=== PATIENT | female | born 1970 | race Caucasian/White ===

== ENCOUNTER 2024-05-21 12:31 | Inpatient (IN) | payer BC, SELFPAY ==
[2024-05-21] VITALS (20 sets, daily range): BP systolic 96–156; BP diastolic 48–94; BMI 33.4; BMI 33.8
[2024-05-21 00:48] LABS: % Basophils 0.2 % (0-2); % Eosinophils 1.3 % (0-6); % Immature Granulocytes 1.6 % (0-0.5); % Lymphocytes 14.8 % (20.5-51.1); % Monocytes 11.4 % (1.7-9.3); % Neutrophils 70.7 % (42.2-75.2); Absolute Eosinophils 0.2 10^3/uL (0-0.7); Absolute Immature Granulocytes 0.2 10^3/uL (0-0.05); Absolute Monocytes 1.6 10^3/uL (0.1-0.6); Absolute Neutrophils 9.6 10^3/uL (1.4-6.5); Hematocrit 40.3 % (37.0-47.0); Hemoglobin 13.8 g/dL (12.0-16.0); Mean Corp Hgb Conc. 34.2 g/dL (33.0-37.0); Mean Corpuscular Hgb 27.6 pg (27.0-31.0); Mean Corpuscular Volume 80.6 fL (81.0-99.0); Mean Platelet Volume 9.2 fL (7.4-10.4); Nucleated Red Blood Cells % 0 %; Platelet Count 330 10^3/uL (130-400); Red Cell Dist. Width 13.2 % (11.5-14.5); White Blood Cell Count 13.6 10^3/uL (4.8-10.8)
[2024-05-21 01:13] LABS: ALT (SGPT) 17 U/L (0-35); AST (SGOT) 25 U/L (14-36); Albumin 4.3 g/dl (3.5-5.0); Alkaline Phosphatase 92 U/L (38-126); Blood Urea Nitrogen 17 mg/dl (7-17); Carbon Dioxide 22 mmol/L (22-30); Chloride 102 mmol/L (98-107); Glucose 179 mg/dl (70-99); Potassium 4.1 mmol/L (3.5-5.1); Sodium 136 mmol/L (135-145); Total Bilirubin 0.6 mg/dl (0.2-1.3); Total Protein 6.6 g/dl (6.3-8.2); eGFR > 60.00
[2024-05-21] MEDS: ZOFRAN 4 MG IV ×2 (02:30→08:47)
[2024-05-21] MEDS: DILAUDID 1 MG IV ×2 (02:31→04:42)
[2024-05-21] MEDS: NSS 1000 IV ×4 (02:31→22:13)
--- NOTE | 2024-05-21 02:43 | ED.GENMED ---
History of Present Illness
General
Chief Complaint: Abdominal Pain
Source: patient and spouse
Exam Limitations: none
Time Seen by Provider: 05/21/24 01:59
Nursing documentation reviewed up to this point in time: agreed with
History of Present Illness
History of Present Illness:
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
She presents with initially generalized mid abdominal pain and feeling somewhat bloated that began shortly after dinner around 6 PM. Pain has been moderate in nature, progressively worsening over the past several hours and now seems to be more
located in her right lower quadrant. Pain is now severe in nature, much worse with movement, improves minimally when she is lying still. She admits to feeling moderately nauseous and vomited once shortly after arrival to the ED. She passed 1
small loose nonbloody stool shortly after arrival to the ED.
She denies fever nor chills. No dysuria and urgency and or hematuria. She denies back pain or flank pain.
She is menopausal.
No history of similar episodes of pain.
Her daily medications include: Fluoxetine, metoprolol, flecainide, rosuvastatin, BuSpar, vitamin D, Zyrtec. She takes no anticoagulants.
Past History
Past History
ED Past Medical History: Arrthythmia (Frequent PVCs-maintained on flecainide), HTN, Hypercholesterolemia and Psychiatric
ED Past Surgical History: (X 2)
Social History
Tobacco: Non-smoker
Alcohol: Occasional
Drug: None
Personal:
Living: with family
Family History
Family History: Other (Noncontributory)
Phy Exam
Physical Exam
Physical Exam:
GENERAL: 54-year-old woman appears her stated age, awake and alert, appears in moderate distress related to pain. Cooperative. is accompanying.
EYE: anicteric
NECK: Supple, nontender, no meningismus, no significant adenopathy.
ENT: oral mucosa is moist. No rhinorrhea.
CARDIAC: Regular rate and rhythm. no murmur.
LUNGS: Clear breath sounds bilaterally, no acute respiratory distress, no wheezes/rales/rhonchi
ABDOMEN: Soft, nondistended, exquisite tenderness right lower quadrant with local guarding, mild rebound. No rigidity. no cvat. normoactive BS.
NEUROLOGICAL: Alert and oriented x3, no focal neuro deficits.
SKIN: Warm and dry, normal color, skin intact. No rash.
MUSCULOSKELETAL: No C/C/E. peripheral pulses are full and equal b/l. No palpable tenderness.
PSYCH: Normal and appropriate interaction.
Course
Orders/Labs/Results
Orders:
Orders
05/21/24 00:35
CMP [Comprehensive Metabolic Panel] Urgent
Complete Blood Count/With Diff Urgent
05/21/24 02:05
0.9% Sodium Chloride 1000 ml [Nss] 1,000 ml IV BOLUS
HYDROmorphone [Dilaudid] 1 mg IV NOW STA
Ondansetron Injectable [Zofran] 4 mg IV NOW STA
05/21/24 02:06
CT Abd/pelvis W Iv Cont Urgent
Comment:
Reason For Exam: SEVERE RLQ pain began this julius
05/21/24 03:58
CefoTEtan [Cefotan] 2,000 mg IV NOW STA
05/21/24 04:01
Electrocardiogram (*1) Urgent
Reason for Study: PreOp
EKG- Treatment ONCE
05/21/24 04:20
Admit/Transfer Patient As Directed
Co-Sign Provider:
Level of Care: Observation services
Assign to:: Telemetry
Physician / Group: General Surgery
Diagnosis: Acute appendicitis
Reason for Telemetry: Arrhythmia
Date to Stop Telemetry: 05/24/24
Time to Stop Telemetry: 11:00
05/21/24 04:21
PRN Pain Medication Management As Directed
May give lesser potent ordered pain med per pt: Yes
preference::
Protocol:: Medication orders for pain may be administered in a
manner that supports deferring to patient preference
when the pt is:
- Requesting an ordered lesser potent pain medication.
Least to most potent pain medications are defined
as: acetaminophen < NSAID < tramadol < opioids
(morphine, oxycodone, hydromorphone).
- Requesting a lesser dose of the same medication IF
ORDERED.
- Requesting a less intrusive route of administration
if both routes are prescribed by the provider (PO <
IV).
05/21/24 04:23
Code Status As Directed
Resuscitation Status: Full Code
05/21/24 04:38
HYDROmorphone [Dilaudid] 1 mg IV Q2HPRN PRN
05/24/24 11:00
DC Protocol for Telemetry ONCE
Abnormal Lab Results
05/21/24
00:35
WBC 13.6 H 10^3/uL
(4.8-10.8)
MCV 80.6 L fL
(81.0-99.0)
Abs Immat Gran (auto) 0.2 H 10^3/uL
(0-0.05)
Absolute Neuts (auto) 9.6 H 10^3/uL
(1.4-6.5)
Absolute Monos (auto) 1.6 H 10^3/uL
(0.1-0.6)
Immature Gran % 1.6 H %
(0-0.5)
Lymphocytes % 14.8 L %
(20.5-51.1)
Monocytes % 11.4 H %
(1.7-9.3)
Glucose 179 H mg/dl
(70-99)
05/21/24 00:35
05/21/24 00:35
Vital Signs
Initial and Last Documented VS:
Initial Vital Signs
Temp Pulse Resp BP Pulse Ox
97.7 F 67 20 118/68 98
05/21/24 00:25 05/21/24 00:25 05/21/24 00:25 05/21/24 00:25 05/21/24 00:25
Last Documented Vital Signs
Temp Pulse Resp BP Pulse Ox
97.7 F 67 20 130/84 93
05/21/24 00:25 05/21/24 00:25 05/21/24 00:25 05/21/24 06:00 05/21/24 04:45
MDM/Problems Addressed
Differential Diagnosis Includes:
Concern for acute appendicitis, diverticulitis, colitis, small bowel obstruction, ovarian cyst, ovarian torsion.
Labs are remarkable for mildly elevated white blood cell count of 13.6. Chemistries are unremarkable save for elevated random glucose 179.
Will medicate for pain and nausea, initiate IV fluids and plan for CT abdomen pelvis with IV contrast.
Chronic conditions affecting care: HTN and Arrhythmia
*Radiology
Radiology exam reviewed: radiology read reviewed (CAT scan shows acute appendicitis)
*Pulse Oximetry
Patient hypoxic: no
*EKG
Interpreted by ED Provider?: Yes
Interpretation: normal
Comparison EKG: no comparison EKG present
Rate: normal
Rhythm: sinus
[place]: normal axis
Interval: normal interval
QRS Pattern: normal QRS
Ischemia: no ischemia
*Critical Care Note
Total Time (30-74mins, 75-104mins- exclusive of procedures): Not Applicable
Update Note
Update Note:
CT shows acute appendicitis. No evidence of perforation or abscess.
Patient is much more comfortable after IV Dilaudid and Zofran but does continue with moderate tenderness right lower quadrant.
Allergy to penicillin is a rash. She states she has taken cephalosporins in the past without adverse events.
General surgery consulted. Case discussed with Dr. Navarrete. Will admit to his service.
Will initiate IV Cefotan, continue IV fluids, as needed pain medication. N.p.o. status.
ED Attending Note
-
Portions of this chart may have been created with voice recognition software.� Occasional wrong word or��sound alike� substitutions may have occurred due to the inherent limitations of voice recognition software.
Discharge Plan
Departure
Patient Disposition: Admit
Date of Disposition: 05/21/24
Time of Disposition: 03:58
Admit to: Med/Surg
Admit to doctor: Landon
Presentation/result/management discussed w/ accepting MD/DO: gen surgery
Condition: Serious
Discharge Problem:
Acute appendicitis
Interventions
Interventions:
*Risk Screen - Suicide Last Done: 05/21/24 00:25
*General Assessment Last Done: 05/21/24 00:25
*Neglect/Abuse Screening Last Done: 05/21/24 01:52
ED- Fall Risk Assessment Last Done: 05/21/24 02:17
*ED COVID-19 Vaccine History Last Done: 05/21/24 01:52
*Nursing Disposition Last Done: 05/21/24 06:09
KZ-Dmdsux-Gcrypoqmnf Assessment Last Done: 05/21/24 02:17
[2024-05-21] MEDS: CEFOTAN 2000 MG IV ×3 (04:05→22:15)
--- NOTE | 2024-05-21 04:36 | HPS.HSE ---
Addendum entered and electronically signed by Cedric Navarrete MD 05/21/24 08:00:
Patient seen and examined independently of admitting nurse practitioner. Agree with documented history and physical consistent my current examination and evaluation.
HPI: 54-year-old female who reports recent history of abdominal bloating and distention intermittently but then developed the acute onset of abdominal pain yesterday evening which rapidly increased in severity and localized to the right lower
quadrant. Worse with movement or to the touch. Nauseous and vomited once. Regular bowel movement yesterday evening. No similar episodes like this in the past.
PMH: Frequent PVCs, hypertension, hyperlipidemia
PSH: x 2
AFVSS
NAD AAOx3
ABD: Soft, nondistended, tenderness palpation in right lower quadrant with voluntary guarding and rebound
CT abdomen/pelvis: Appendix visualized in the right lower quadrant with multiple fecaliths. Appendiceal dilation and associated localized inflammatory changes. Trace free fluid. No organizing abscess. No extraluminal air. No phlegmon. Terminal
ileum and adjacent small bowel with mild associated reactive changes. Cecum unremarkable.
Assessment/plan: 54-year-old female presenting with acute appendicitis
Reviewed with patient treatment options both operative and nonoperative management. We discussed the risks and benefits of either approach. In the setting of multiple obstructing fecaliths I recommended strong consideration of appendectomy which
patient is in agreement with. Laparoscopic appendectomy was reviewed in detail the patient including the operative technique, potential operative findings and their management, alternative treatment options, benefits and risks such as but not
limited to bleeding, infectious and related complications, iatrogenic injury to surrounding viscera. We discussed the typical postoperative recovery pending operative findings.
Any of the patient's concerns or questions were fully addressed and informed consent was obtained
Patient is on the OR schedule today for laparoscopic appendectomy
Original Note:
Family Physician
-
Family Physician: Artem Berrios III, MD
Chief Complaint
-
Abdominal pain
History of Present Illness
Patient is a 54 year old female with a past medication history significant for hypertension, hyperlipidemia, history of frequent PVCs (on Flecainide), and history of anxiety/depression who presents with abdominal pain. She states pain was initially
generalized throughout her mid abdomen and was feeling bloated around dinner on Saturday around 6 pm. Pain began as moderate in nature, progressively worsening over the past several hours and now seems to be more located in her right lower
quadrant. Pain is now severe in nature, much worse with movement, improves minimally when she is lying still. She admits to feeling moderately nauseous and vomited once shortly after arrival to the ED. She passed 1 small loose nonbloody stool
shortly after arrival to the ED. She denies fever nor chills. No dysuria and urgency and or hematuria. She denies back pain or flank pain.
In the emergency department, labs were remarkable for elevated WBC at 13.6. Vital signs stable, afebrile. CT Abd/Pelvis with contrast completed, preliminary read findings compatible with acute appendicitis. 8 mm and 9 mm calcified appendicoliths in
the proximal appendix. (3 additional appendicoliths in the appendix). The appendix is dilated, measuring up to 13 mm in diameter, and fluid distended. Mild periappendiceal inflammatory fat stranding and trace free fluid. No evidence for perforation.
No abscess collection. No other acute intra-abdominal pathology.
Patient received 1L NNS, nausea and pain medication and started on Cefotan 2,000 mg IV (Allergy to penicillin is a rash. She states she has taken cephalosporins in the past without adverse events.) General Surgery consulted by Dr. Miguel. Case
discussed with Dr. Navarrete who will admit patient to his service.
Medical History
Past Medical History
Past Medical History: Reports Arrhythmia (Hx of frequent PVC's), HTN and Other (Hyperlipidemia)
Past Surgical History: Reports (X 2)
Social History
Tobacco: Non-smoker
Alcohol: Occasional
Drug: None
Personal:
Living: With Family
Employment: Employed
Family History
Family History: Not pertinent
Allergies / Home Medications
Allergies reflects when Allergies were last updated in [facility].
Home Medications with original date entered in [facility]
Allergy/Medication List:
Patient Allergies
Allergy/AdvReac Type Severity Reaction Status Date / Time
Penicillins Allergy Rash Verified 05/21/24 00:25
If medication reconciliation has not been performed, why?: Medication List N/A
Review of Systems
-
History Source: Patient
Constitutional: Reports Chills
EENT: Reports No Symptoms
Respiratory: Reports No Symptoms
Cardiac: Reports No Symptoms
Abdomen/GI: Reports Abdominal Pain (started as generalized, now right lower quadrant), Nausea, Vomiting (vomited x 1 in ED waiting room) and Diarrhea (loose stools)
: Reports No Symptoms
Musculoskeletal: Reports No Symptoms
Skin: Reports No Symptoms
Neurological: Reports No Symptoms
Psych: Reports Calm
Physical Exam
Vital Signs
Vital Signs
Temp Pulse Resp BP Pulse Ox
97.7 F 67 20 135/91 97
05/21/24 00:25 05/21/24 00:25 05/21/24 00:25 05/21/24 04:00 05/21/24 04:00
Physical Exam
General: Well Nourished, Appears in Distress and Pain (right lower quadrant)
HEENT: Moist mucous membranes and PERRLA
Respiratory: Clear
Cardiac: S1/S2 and Regular Rhythm; No Murmur or Peripheral Edema
GI: Non Distended, Normal Bowel Sounds and Tender (right lower quadrant, TTP)
Musculoskeletal: No Edema
Skin: Warm and Dry; No Rash
Neuro: AO x 3
Psych: Calm and Intact Judgment/Insight
Laboratory Results
-
05/21/24 00:35
05/21/24 00:35
Laboratory Results
Total Bilirubin 0.6 mg/dl (0.2-1.3) 05/21/24 00:35
AST 25 U/L (14-36) 05/21/24 00:35
ALT 17 U/L (0-35) 05/21/24 00:35
Alkaline Phosphatase 92 U/L (38-126) 05/21/24 00:35
Data Reviewed
-
CT Scan: Report Reviewed by me
Lab Data: Labs Reviewed by me
Impression/Plan
-
IMPRESSION:
Patient is a 54 year old female with a past medication history significant for hypertension, hyperlipidemia, history of frequent PVCs (on Flecainide), and history of anxiety/depression who presents with abdominal pain
PLAN:
Acute appendicitis
-Admit to general surgery, Dr. Navarrete accepted patient
-NPO, IV fluids
-Pain medication, anti emetics, antibiotics
Hypertension/Hyperlipidemia
Continue home medications
Anxiety/Depression
Continue home medications
Home medications not yet verified. Please order as appropriate.
DVT prophylaxis: Lovenox
Code Status: Full code
--- NOTE | 2024-05-21 07:22 | TRANSFER ---
Received pt from ED at 0615 w dx of acute appendicitis. Pt denied pain. VS WNL. Discussed w patient plan of care and reason for NPO order, pt verbalized understanding. Call peñaloza within reach, bed in lowest position.
--- NOTE | 2024-05-21 08:00 | W.SUR.PREOP ---
Pre-Operative Surgical Note
-
I have examined this patient prior to the performance of the scheduled procedure.
The patient's condition is unchanged from the time of the current History and
Physical and the patient is able to undergo the scheduled procedure.
[2024-05-21] MEDS: FLAGYL 500 MG 100 IV ×2 (09:36→17:00)
[2024-05-21] MEDS: COMPAZINE 5 MG IV (09:36)
[2024-05-21] MEDS: STERILE WATER FOR INJECTION 10 ML IV ×2 (09:37→22:15)
--- NOTE | 2024-05-21 10:44 | PTCARENOTE ---
Pt transported to OR, care ongoing.
--- NOTE | 2024-05-21 12:27 | W.IMMPOSTOP ---
Addendum entered and electronically signed by Cedric Navarrete MD 05/21/24 13:05:
#[id number]
Original Note:
Surgical Immed Post Op Note
-
Primary Surgeon: Landon
Assisting Surgeon: Nithin Menon, PGY 1; RACHEL Kimball
Pre-op Diagnosis: Acute appendicitis
Post-op Diagnosis: Gangrenous acute appendicitis with localized peritonitis and purulence
Procedure Performed: Laparoscopic appendectomy
Anesthesia Type: GETA +0.25% Marcaine with epi
Specimen / Cultures: Appendix/none
Estimated Blood Loss: 6 mL
Complications: None immediate
Operative Findings: Walled off gangrenous appendix with localized peritonitis and localized purulence but no abscess. Mesoappendix taken with harmonic. Some seepage of appendix material through gangrenous wall during dissection but no disruption
of appendix. Appendix divided flush with the cecum utilizing Endo BALDOMERO leyva stapler. Base of appendix and cecum clean.
Plan: Clear liquid diet postoperatively monitoring for ileus development
Continue IV antibiotics postoperatively
Supportive care
Updated postoperatively regarding the operative findings and typical postoperative care
--- NOTE | 2024-05-21 14:21 | PTCARENOTE ---
Pt returned to 2S in bed. Abdominal lap sites C/D/I, glued and POOLROOM/POOLHALL MANAGER. IVF infusing per order. Telemetry applied. Pt instructed to ring for assistance getting OOB and educated on CLD, verbalized understanding. Bed locked and in the lowest position,
safety maintained. Oriented to room and call peñaloza, spouse at bedside.
[2024-05-21] MEDS: TAMBOCOR 100 MG PO (15:21)
[2024-05-21] MEDS: TYLENOL 1000 MG PO (16:58)
[2024-05-21] MEDS: LOVENOX 40 MG SC (17:00)
--- NOTE | 2024-05-21 17:27 | CM ---
Alert awake oriented patient who lives with her Kun in a 2 story home with 6 steps to enter and 6 steps to bed/bathroom. She is independent in activates of daily living.She does drive .She has CPAP with [facility]. Offered VN she declined VN.
No VN in past . No SNF hx
Pharmacy [facility]
PCP Dr Berrios
PLAN Home with no needs
[2024-05-21] MEDS: BUSPAR 15 MG PO (20:00)
[2024-05-21] MEDS: TORADOL 10 MG IV (22:10)
[2024-05-22] MEDS: FLAGYL 500 MG 100 IV ×3 (01:34→17:04)
[2024-05-22 03:30] VITALS: BP 114/69
[2024-05-22 05:34] LABS: Hematocrit 35.5 % (37.0-47.0); Mean Corp Hgb Conc. 33.8 g/dL (33.0-37.0); Mean Corpuscular Hgb 28.1 pg (27.0-31.0); Mean Corpuscular Volume 83.1 fL (81.0-99.0); Mean Platelet Volume 9.7 fL (7.4-10.4); Platelet Count 242 10^3/uL (130-400); Red Blood Cell Count 4.27 10^6/uL (4.20-5.40); Red Cell Dist. Width 13.8 % (11.5-14.5); White Blood Cell Count 19.3 10^3/uL (4.8-10.8)
[2024-05-22 06:00] LABS: Blood Urea Nitrogen 15 mg/dl (7-17); Calcium 8.8 mg/dl (8.4-10.2); Carbon Dioxide 23 mmol/L (22-30); Chloride 104 mmol/L (98-107); Estimated Creatinine Clearance 91 ml/min; Glucose 106 mg/dl (70-99); Potassium 3.8 mmol/L (3.5-5.1); Sodium 136 mmol/L (135-145); eGFR > 60.00
[2024-05-22] MEDS: NSS 1000 IV ×2 (07:12→17:09)
--- NOTE | 2024-05-22 07:24 | W.PN.GS2 ---
Today's Communication / Plan
-
-- Clears
-- Abx: Cefotetan and Flagyl
-- OOB/ambulate
-- Monitor for ileus and IV abx today
Assessment / Plan
-
Patient is a 54 yo F POD#1 s/p laparoscopic appendectomy for gangrenous and perforated appendix
AVSS
No repeat labs ordered
Recovering well overall. High risk for ileus. Plan for slow dietary advancement throughout the day if tolerates clears and continued IV antibiotics.
-- Clears
-- Pain control: Tylenol, Toradol, Oxycodone
-- mIVF
-- Abx: Cefotetan and Flagyl
-- DVT: Lovenox
-- OOB/ambulate
-- Monitor for ileus and IV abx today
Subjective Data
-
Date of Service: May 22, 2024
Delayed complaints. Denies nausea or vomiting. No flatus or BM. Pain overall well-controlled. Ambulating. Voiding. Afebrile.
Objective Data
-
Intake and Output
05/21/24 05/22/24 05/23/24
06:59 06:59 06:59
Intake Total 2470 / 2470
Balance 2470 / 2470
Intake:
Oral fluids 960 / 960
IV fluids (Total) 1410 / 1410
Normosol 150 / 150
IV piggybacks 100 / 100
Other:
Number of approximated MODERATE 1
amounts of urine
Number of approximated LARGE 1
amounts of urine
Vital Signs
Temp Pulse Resp BP Pulse Ox
98.0 F 74 16 114/69 97
05/22/24 03:30 05/22/24 03:30 05/22/24 03:30 05/22/24 03:30 05/22/24 03:30
Lab Results
05/22/24 04:40
05/22/24 04:40
Calcium 8.8 mg/dl (8.4-10.2) 05/22/24 04:40
Total Bilirubin 0.6 mg/dl (0.2-1.3) 05/21/24 00:35
AST 25 U/L (14-36) 05/21/24 00:35
ALT 17 U/L (0-35) 05/21/24 00:35
Alkaline Phosphatase 92 U/L (38-126) 05/21/24 00:35
Total Protein 6.6 g/dl (6.3-8.2) 05/21/24 00:35
Albumin 4.3 g/dl (3.5-5.0) 05/21/24 00:35
Physical Exam
-
Gen: NAD
Abd: soft, obese, tender, minimal distension, non-peritoneal, incisions c/d/i - old blood at umbilicus, no drainage, no ecchymosis or erythema
Patient has a guthrie catheter: No
Patient has a central line: No
[2024-05-22 07:30] VITALS: BP 128/76
[2024-05-22] MEDS: BUSPAR 15 MG PO ×2 (07:47→20:31)
[2024-05-22] MEDS: PROZAC 80 MG PO (07:47)
[2024-05-22] MEDS: TOPROL XL 25 MG PO (07:47)
[2024-05-22] MEDS: CRESTOR 10 MG PO (07:47)
[2024-05-22] MEDS: TAMBOCOR 100 MG PO ×2 (07:47→20:31)
[2024-05-22] MEDS: TORADOL 10 MG IV ×2 (07:47→20:30)
[2024-05-22] MEDS: STERILE WATER FOR INJECTION 10 ML IV ×2 (10:58→21:24)
[2024-05-22] MEDS: CEFOTAN 2000 MG IV ×2 (10:58→21:24)
[2024-05-22] MEDS: TYLENOL 1000 MG PO ×2 (11:03→20:30)
[2024-05-22 11:13] VITALS: BP 127/82
--- NOTE | 2024-05-22 14:14 | CM ---
Chart reviewed. Met with pt
Clear liquids
Enc ambulation
IV antibiotics
Monitor for ileus
Plan anticipate home no needs
[2024-05-22 15:10] VITALS: BP 132/82
[2024-05-22] MEDS: LOVENOX 40 MG SC (17:04)
[2024-05-22 19:05] VITALS: BP 162/93
[2024-05-22 23:20] VITALS: BP 156/94
[2024-05-23] MEDS: FLAGYL 500 MG 100 IV ×2 (02:33→09:17)
[2024-05-23 03:10] VITALS: BP 133/79
[2024-05-23] MEDS: ZOFRAN 4 MG IV (05:02)
[2024-05-23] MEDS: NSS 1000 IV (05:06)
[2024-05-23 07:59] VITALS: BP 152/97
--- NOTE | 2024-05-23 08:48 | W.PN.GS2 ---
Today's Communication / Plan
-
-- Regular diet
-- HLIV
-- Abx: Cefotetan and Flagyl, unable to use fluoroquinolone with Flecainide
-- Monitor for dietary tolerance, dispo pending
Assessment / Plan
-
Patient is a 54 yo F POD#2 s/p laparoscopic appendectomy for gangrenous and perforated appendix
AVSS
No repeat labs ordered
Recovering well overall. High risk for ileus. Plan for slow dietary advancement.
-- Regular diet
-- Pain control: Tylenol, Toradol, Tramdol
-- HLIV
-- Abx: Cefotetan and Flagyl, unable to use fluoroquinolone with Flecainide
-- DVT: Lovenox
-- OOB/ambulate
-- Monitor for ileus and IV abx today
Subjective Data
-
Date of Service: May 23, 2024
No major complaints. Does report some mild nausea overnight which resolved. Denies any current nausea. Passing flatus and loose stools. Afebrile. Voiding. Ambulating.
Objective Data
-
Intake and Output
05/22/24 05/23/24 05/24/24
06:59 06:59 06:59
Intake Total 2470 / 2470 3130 / 3130
Balance 2470 / 2470 3130 / 3130
Intake:
Oral fluids 960 / 960 1830 / 1830
IV fluids (Total) 1410 / 1410 1000 / 1000
Normosol 150 / 150
IV piggybacks 100 / 100 300 / 300
Other:
Number of approximated MODERATE 1 2
amounts of urine
Number of approximated LARGE 1
amounts of urine
Number of unmeasured liquid
stools
Rectum 1
Vital Signs
Temp Pulse Resp BP Pulse Ox
97.6 F 64 14 152/97 95
05/23/24 07:59 05/23/24 07:59 05/23/24 07:59 05/23/24 07:59 05/23/24 07:59
Calcium 8.8 mg/dl (8.4-10.2) 05/22/24 04:40
Total Bilirubin 0.6 mg/dl (0.2-1.3) 05/21/24 00:35
AST 25 U/L (14-36) 05/21/24 00:35
ALT 17 U/L (0-35) 05/21/24 00:35
Alkaline Phosphatase 92 U/L (38-126) 05/21/24 00:35
Total Protein 6.6 g/dl (6.3-8.2) 05/21/24 00:35
Albumin 4.3 g/dl (3.5-5.0) 05/21/24 00:35
Physical Exam
-
Gen: NAD
Abd: soft, mild tenderness, obese, mild distension, non-peritoneal, incisions c/d/i - no erythema or drainage, mild ecchymosis at umbilicus
Patient has a guthrie catheter: No
Patient has a central line: No
[2024-05-23 08:50] LABS: Hematocrit 36.8 % (37.0-47.0); Hemoglobin 11.8 g/dL (12.0-16.0); Mean Corp Hgb Conc. 32.1 g/dL (33.0-37.0); Mean Corpuscular Hgb 26.9 pg (27.0-31.0); Mean Platelet Volume 9.5 fL (7.4-10.4); Platelet Count 221 10^3/uL (130-400); Red Blood Cell Count 4.38 10^6/uL (4.20-5.40); White Blood Cell Count 9.1 10^3/uL (4.8-10.8)
[2024-05-23 09:13] LABS: Blood Urea Nitrogen 16 mg/dl (7-17); Calcium 8.6 mg/dl (8.4-10.2); Carbon Dioxide 23 mmol/L (22-30); Chloride 107 mmol/L (98-107); Estimated Creatinine Clearance 91 ml/min; Glucose 82 mg/dl (70-99); Potassium 3.9 mmol/L (3.5-5.1); Sodium 138 mmol/L (135-145); eGFR > 60.00
[2024-05-23] MEDS: STERILE WATER FOR INJECTION 10 ML IV (09:17)
[2024-05-23] MEDS: CEFOTAN 2000 MG IV (09:17)
[2024-05-23] MEDS: CRESTOR 10 MG PO (09:21)
[2024-05-23] MEDS: TOPROL XL 25 MG PO (09:21)
[2024-05-23] MEDS: TAMBOCOR 100 MG PO (09:21)
[2024-05-23] MEDS: BUSPAR 15 MG PO (09:22)
[2024-05-23] MEDS: PROZAC 80 MG PO (09:22)
[2024-05-23] MEDS: TORADOL 10 MG IV (09:25)
[2024-05-23 11:46] VITALS: BP 147/90
--- NOTE | 2024-05-23 13:00 | PTCARENOTE ---
had lite breakfast, thus far is tolerating. no N/V. comfortable. walking self to bathroom
--- NOTE | 2024-05-23 15:57 | W.DCSUMMARY ---
Discharge Summary
Discharge Data
Date of Admission: 05/21/24
Date of Discharge: 05/23/24
-
Pending Results: No
Hospital Course
Ms Agudelo presented through the ED with approximately 24 hours of right lower quadrant pain and exam and imaging consistent with acute appendicitis. She was taken to the OR for laparoscopic appendectomy with gangrenous appendicitis with localized
peritonitis and purulence noted intraoperatively. She had some delay in bowel recovery post operatively and was kept on clear liquids until she was passing flatus and stools. Diet was advanced and well tolerated prior to discharge. Given operative
findings, she was discharged on oral antibiotics to complete a 7 day post operative course.
Discharge Plan
-
Patient Disposition: Home (Routine Discharge)
Discharge Diagnosis/Procedures: Acute appendicitis. Laparoscopic appendectomy
Condition: Good
Diet: As tolerated and Regular
Additional Diets: Smaller meals initially after surgery as abdominal bloating and distention are common for the first few days postoperatively
Activity: No strenuous activity
Additional Activity: No lifting over 20 pounds for 3 to 4 weeks postoperatively
Driving Restrictions: No driving for 1 to 3 days or if using narcotics
Bathing Restrictions: OK to Shower
Wound Care: Glue at surgical sites typically peels off in 2 to 3 weeks
Activity Restrictions/Additional Instructions:
�Cedric Navarrete MD [facility] General Surgery
[facility]
[address], [address]
[place] [address]
[phone]
Initial Post-Operative Instructions for Laparoscopic Surgery
The incision sites are sealed with a surgical glue dressing.� It is safe to shower at any time after surgery when the glue is dry.� Let shower water run over the incisions and then pat dry.
Glue dressing typically peels off in 2-3 weeks.
Abdominal/incisional pain and discomfort, shoulder/scapular pain, bloating, and mild nausea, as well as bruising/stiffness and swelling at the incision sites are common after surgery.� If felt to be excessive, notify us.
Please start postoperative pain management using over the counter medications such as Tylenol and Ibuprofen, per instructions on the bottle, as long as there are no medical reasons why you cannot take these medications.
Ice the incisions sites for 20 minutes every hour or so to help with postoperative incisional pain and reduce postoperative surgical site swelling.� Take care NOT to get an ice burn on the skin surface.
A warm heating pad is often helpful to alleviate shoulder/scapular back pains after laparoscopic procedures.� This pain typically dissipates 24-72hrs post op.
Resume a regular diet initially with smaller meal sizes for 24-36hrs after surgery if not experiencing postoperative nausea or significant bloating/distention.
Constipation is common following surgery and postoperative narcotic use.� May use a stool softener such as Colace (100 mg 2x day) to prevent constipation
If no BM 24hrs after surgery, recommend starting daily Miralax
If no BM in 24-48hrs after starting Miralax --> recommend then using a dose of magnesium citrate or milk of magnesia with a Senokot tablet to help alleviate post operative constipation as long as there is no nausea/vomiting and passing gas.
Resume all preoperative medications as prescribed, unless directed otherwise.
Do not drive or drink alcohol for 24 hrs after having anesthesia or while taking narcotic pain medications.
Resume regular daily light activities, such as walking, standing and going up/down stairs as tolerated within 24hrs of surgery.� Please refrain from lifting over 15-20 lbs or strenuous exercise until postoperative follow up visit &/or approximately
3-4 weeks.�
Call the office with a fever above 101� F, nausea with vomiting, severe abdominal pain, spreading redness and drainage from incision sites or with any concerns/questions.
If not arranged prior to surgery, please call the office to schedule or confirm your 10-14 day postoperative surgical follow-up office visit with Dr. Navarrete.
Referrals:
Cedric Navarrete MD [Active] - in two weeks
Prescriptions:
New
cefadroxil 500 mg capsule
500 mg PO BID Qty: 10 0RF
tramadol 50 mg tablet
25 - 50 mg PO Q6HPRN PRN (Reason: severe pain/breakthrough pain) Qty: 10 0RF
metronidazole 500 mg tablet
500 mg PO Q8H 5 Days Qty: 15 0RF
Continued
fluoxetine 40 mg Capsule
80 mg PO DAILY
flecainide 100 mg Tablet
100 mg PO Q12H
buspirone 15 mg Tablet
15 mg PO BID
rosuvastatin 10 mg Tablet
10 mg PO DAILY
metoprolol succinate 25 mg
DAILY
Discharge Orders:
Discharge Patient (As Directed); Ordered 05/23/24
Ordered By: Roya Gil
Discharge Date and Time
Print Language: MONEGASQUE
[2024-05-23] MEDS: ULTRAM 50 MG PO (16:00)
[2024-05-23 16:49] VITALS: BP 153/95
== END 2024-05-23 16:50 | disposition home or self-care (01) | DRG 399 ==
LOC: 2 SOUTH 12:31
PROVIDERS: Emergency Medicine; Registered Nurse; ADMITTING PHYSICIAN Surgery; EMERGENCY PHYSICIAN Emergency Medicine; FAMILY PHYSICIAN Student in an Organized Health Care Education/Training Program
PROC: 0DTJ4ZZ Resection of Appendix, Percutaneous Endoscopic Approach (ICD-10-PCS; 2024-05-21)
DX: K35.32 Acute appendicitis with perforation, localized peritonitis, and gangrene, without abscess (principal); K38.1 Appendicular concretions; I10 Essential (primary) hypertension; E78.00 Pure hypercholesterolemia, unspecified
CPT/HCPCS: 88304; 74177; 80048; 80053; 85025; 85027; 93005; 96361; 96374; 96375; 99285; Q9967